=== PATIENT | male | born 1995 | race Caucasian/White ===

== ENCOUNTER 2024-02-27 14:49 | Emergency (ER) | payer MEDICAID, SELFPAY ==
[2024-02-27 15:05] VITALS: BP 148/79; PULSE 64; RESP 18; TEMP 36.6; O2SAT 100
--- NOTE | 2024-02-27 15:09 | ED.DENTAL ---
HPI - Dental/Oral General Chief complaint: Dental/Oral Stated complaint: RT Side tooth Pain Time Seen by Provider: 02/27/24 15:09 Source: patient, RN notes reviewed and old records reviewed Mode of arrival: ambulatory Limitations: no limitations History of Present Illness HPI Narrative: patient presents with complaints of right lower dental pain. He reports that he has had dental problems to the affected tooth for several months, over the past 3 months it has been gradually worsening, he reports now the pain is nearly unbearable. He denies any fever, chills, sweats. He denies any active drainage. He reports he has been taking [id number] pain relievers with for results. He has had difficulty getting into a dentist due to insurance problems. Says that he recently moved here from [place], has not been to a dentist since he lived in [place]. He denies any injury or trauma. He voices no other concerns or complaints at this time. He is able to manage own secretions, no drooling or stridor. Teeth map: 1. pain Related Data Allergies Allergy/AdvReac Type Severity Reaction Status Date / Time No Known Allergies Allergy Verified 02/27/24 15:10 Review of Systems Review of Systems: All systems reviewed & are unremarkable except as noted in HPI and below Constitutional: Constitutional: Reports as per HPI and Reports no additional constitutional complaints ENT: Reports system reviewed and no additional complaints, except as documented and Reports as per HPI Cardiovascular: Cardiovascular: Reports as per HPI and Reports no additional cardiovascular complaints Respiratory: Respiratory: Reports as per HPI and Reports no additional respiratory complaints Gastrointestinal: Gastrointestinal: Reports no additional gastrointestinal complaints PMFSH Comments At the time of my signature, I reviewed and agree with the nursing past medical, surgical, social, and family history. There is no relevant family history pertinent to the patient complaint. Exam Const: General: cooperative, no acute distress, alert and awake Orientation/consciousness: oriented to person, oriented to place and oriented to time HENMT: Head: normal to inspection Teeth and gingiva: fair dentition and gingiva abnormal hypertrophic, edematous and tender Teeth image: 1. Cracked tooth, subsequent swelling and irritation of the surrounding gingiva Resp: Effort & Inspection: normal respiratory effort and able to speak in complete sentences Auscultation: clear to auscultation bilaterally, no crackles, no rales, no rhonchi and no wheezes Cardio: Palpation: normal PMI Rate: regular rate Rhythm: regular rhythm Heart sounds: S1 normal heart sound present and S2 normal heart sound present Neuro: General: oriented to person, oriented to place and oriented to time Cranial nerves: Yes CN's II-XII intact bilaterally Psych: Appearance: grossly normal Thought process: Normal thought process present Insight: Good insight present (Psych) Judgement: Good judgement present (Psych) Course Course Level of Care: Express Care Visit Vital Signs Vital signs: Vital Signs Temperature 97.8 F 02/27/24 15:05 Pulse Rate 64 02/27/24 15:05 Respiratory Rate 18 02/27/24 15:05 Blood Pressure 148/79 H 02/27/24 15:05 Pulse Oximetry 100 02/27/24 15:05 Oxygen Delivery Room Air 02/27/24 15:05 Temperature 97.8 F 02/27/24 15:05 Pulse Rate 64 02/27/24 15:05 Respiratory Rate 18 02/27/24 15:05 Blood Pressure 148/79 H 02/27/24 15:05 Pulse Oximetry 100 02/27/24 15:05 Oxygen Delivery Room Air 02/27/24 15:05 Reviewed MDM - Dental/Oral MDM Narrative Medical decision making narrative: nontoxic appearing patient, obvious dental infection, but no swelling to the face or neck. He is able to manage her own secretions. His blood pressure is elevated, he is advised to follow with primary care provider regarding this. He will be put on antibi
== END 2024-02-27 15:25 | disposition home or self-care (01) ==
PROVIDERS: Emergency Provider Nurse Practitioner Family
DX: K04.7 Periapical abscess without sinus (principal)
CPT/HCPCS: 99213; G0463

== ENCOUNTER 2025-04-24 12:15 | Emergency (ER) | payer MEDICAID, SELFPAY ==
[2025-04-24 12:26] VITALS: BP 135/79; PULSE 72; RESP 18; TEMP 36.6; O2SAT 97
[2025-04-24 12:43] LABS: EDCOVIDSCREEN Negative (Negative); EDINFLUASCREEN Negative (Negative); EDINFLUBSCREEN Negative (Negative)
--- NOTE | 2025-04-24 12:48 | ED_ITS ---
HPI - URI/Sore Throat General Chief Complaint: Upper Respiratory Infection Stated Complaint: Cough Time Seen by Provider: 04/24/25 12:30 Source: patient Mode of arrival: ambulatory Limitations: no limitations History of Present Illness HPI Narrative: Richar is a 29 year old female patient presenting to the clinic today with c/o cough, nasal congestion, sinus pressure, and headache x 3 days. Has taken Tylenol for his headache. Denies any fever, chills, or body aches. No chest pain or shortness of breath. Related Data Allergies Allergy/AdvReac Type Severity Reaction Status Date / Time No Known Allergies Allergy Verified 04/24/25 12:40 Review of Systems Review of Systems: Pertinent positives per HPI. Patient denies any fever, chills, rash, visual changes, dizziness, shortness of breath, chest pain, palpitations, nausea, vomiting, diarrhea, constipation, abdominal pain, or any urinary issues. PMFSH Comments At the time of my signature, I reviewed and agree with the nursing past medical, surgical, social, and family history. There is no relevant family history pertinent to the patient complaint. Exam Narrative: General: Well-developed, morbidly obesity, in no apparent distress Head: Normocephalic, atraumatic Eyes: Pupils equally round and reactive to light bilaterally, EOM intact, sclera and conjunctive clear, no discharge, lids normal Ears: TMs intact and clear, ear canals clear, no drainage, grossly hearing normal. Nose: Nares patent, clear nasal discharge, moderate inflammation, no sinus tenderness. Mouth: Oral pharynx without lesions or masses, good dentition, MMM. PND Neck: Supple, trachea midline, no enlargement of anterior or posterior cervical nodes, no thyroid masses or goiter palpable. Cardio: Regular rate and rhythm, s1 and s2 normal, no murmur appreciated. Resp: Clear to auscultation bilaterally, no rhonchi, rales, wheezing or rubs Course Course Emergency Course: Portions of this record may have been created with voice recognition software. Level of Care: Express Care Visit Vital Signs Vital signs: Vital Signs Temperature 36.6 C 04/24/25 12:26 Pulse Rate 72 04/24/25 12:26 Respiratory Rate 18 04/24/25 12:26 Blood Pressure 135/79 04/24/25 12:26 Pulse Oximetry 97 04/24/25 12:26 Oxygen Delivery Room Air 04/24/25 12:26 Temperature 36.6 C 04/24/25 12:26 Pulse Rate 72 04/24/25 12:26 Respiratory Rate 18 04/24/25 12:26 Blood Pressure 135/79 04/24/25 12:26 Pulse Oximetry 97 04/24/25 12:26 Oxygen Delivery Room Air 04/24/25 12:26 Vital signs reviewed MDM - URI/Sore Throat MDM Narrative Medical decision making narrative: At the time of visit patient is resting comfortably on the exam table. Patient appears to be nontoxic. C/o cough, nasal congestion, sinus pressure, and headache x 3 days. Has taken Tylenol for his headache. Denies any fever, chills, or body aches. No chest pain or shortness of breath. On exam patient has bilateral TMs intact and clear, nares patent with clear nasal drainage- moderate anterior turbinate inflammation, oropharynx with postnasal drip, lung sounds are clear, heart rates regular rate and rhythm. COVID and influenza testing was ordered. Labs: COVID and influenza testing was negative in the clinic today Plan: I suspect patient has URI. Prescription for prednisone was sent to the pharmacy. Supportive measures were discussed with the patient and they voiced understanding discharge instructions and agrees to treatment plan. Return precautions reviewed Differential Diagnosis Differential diagnosis: Likely upper respiratory infection, otitis media, sinusitis, viral infection, bronchitis, influenza, pharyngitis and other (COVID) Lab Data Labs: Lab Results 04/24/25 Range/Units 12:42 POC Influenza A Ag Negative (Negative) POC Influenza B Ag Negative (Negative) POC SARS CoV-2 Ag Negative (Negative) Discharge Plan Discharge Clinical Impression: Upper respiratory infection Qualifiers: URI type: unspecified URI Qualified Code(s): J06.9 - Acute upper respiratory infection, unspecified Patient Disposition: Home Condition: Stable Instructions: Antibiotic Form, Cold Symptoms (ED) Additional Instructions: Take medications as prescribed-prednisone 40 mg daily x 5 days Increase fluids and stay well hydrated May take Tylenol or motrin as directed on bottle for pain/fever May use Flonase 1 spray in each nare daily May take OTC antihistamines such as Zyrtec or Claritin daily as directed on bottle May apply Vicks vapor rub to chest to open sinuses Sinus rinses for congestion Cepacol spray, cough drops, throat lozenges, warm tea with honey/lemon, gargle salt water to soothe throat BRAT diet for diarrhea Clear liquids x 24 hours then advance as tolerated for nausea/vomiting Go to the ED if you develop a worsening in your condition- high fever not controlled by Tylenol or Motrin, dehydration, weakness, lethargy, shortness of breath, or chest pain. Follow up with your PCP in 3-5 days if symptoms persist. Patient Language: Japanese Prescriptions: New prednisone 20 mg tablet 40 mg PO DAILY 5 Days Qty: 10 0RF Follow-up/Referrals: PHYSICIAN,INDUSTRIAL METHODS CONSULTANT [Primary Care Provider, Internal Medicine] Time of Disposition: 12:42 Quality NIHSS Nursing Documentation ED NIHSS nursing documentation: reviewed/agree
== END 2025-04-24 12:48 | disposition home or self-care (01) ==
PROVIDERS: Emergency Provider Nurse Practitioner Family
DX: J06.9 Acute upper respiratory infection, unspecified (principal); Z20.822 Contact with and (suspected) exposure to COVID-19
CPT/HCPCS: 87426; 87804; 99213; G0463